=== PATIENT | female | born 1975 | race Caucasian/White ===

== ENCOUNTER 2017-10-01 17:29 | Observation (INO) | payer OTHER, BC ==
[~2017-10-01] VITALS: Ht 170.2 cm; Wt 65.5 kg
[~2017-10-01 17:29] MED LIST: PRENATAL VITAMI1 TA5 PO
[2017-10-01 23:13] VITALS: BP 111/49; PULSE 61
[2017-10-01 23:28] VITALS: BP 110/49; PULSE 61; TEMP 97.7
[2017-10-01 23:43] VITALS: BP 107/45; PULSE 60
[2017-10-01 23:58] VITALS: BP 103/45; PULSE 69
[2017-10-02] VITALS (10 sets, daily range): BP systolic 94–127; BP diastolic 44–75; PULSE 49–72; TEMP 98–99.7
[2017-10-03 00:09] VITALS: BP 105/53; PULSE 58; TEMP 98.9
[2017-10-03 03:33] VITALS: BP 108/53; PULSE 55; TEMP 98.3
[2017-10-03] MEDS ORDERED: COLACE 100100 MG/CAP PO (07:29)
[2017-10-03] MEDS ORDERED: NORCO 325 MG-7.1 TAB PO (07:29)
[2017-10-03] MEDS ORDERED: ASPI325T6 PO (07:30)
[2017-10-03 08:46] VITALS: BP 116/39; PULSE 101; TEMP 99
[2017-10-03 11:52] VITALS: BP 117/68; PULSE 72; TEMP 98.9
[2017-10-03] MEDS ORDERED: CEPHALEXIN500 M1 PO (13:21)
== END 2017-10-03 19:23 | disposition home or self-care (01) ==
LOC: COL.ER 17:29 → PEDS 18:58
DX: S82.232B Displaced oblique fracture of shaft of left tibia, initial encounter for open fracture type I or II (principal); S82.452B Displaced comminuted fracture of shaft of left fibula, initial encounter for open fracture type I or II; S62.112A Displaced fracture of triquetrum [cuneiform] bone, left wrist, initial encounter for closed fracture; Z79.82 Long term (current) use of aspirin; V19.40XA Pedal cycle driver injured in collision with unspecified motor vehicles in traffic accident, initial encounter
CPT/HCPCS: A9284; C1713; G0378; G8978-GP; G8979-GP; G8987-GO; G8988-GO; J0330; J0690; J1100; J1170; J1650; J2250; J2270; J2405; J2550; J2704; J2765; J3010; J7030; J7120; L4386

== ENCOUNTER 2018-01-17 09:45 | Outpatient (RCR) | payer OTHER, BC ==
[~2018-01-17 09:45] MED LIST changes: +ASPI325T6 PO; +CEPHALEXIN500 M1 PO; +COLACE 100100 MG/CAP PO; +NORCO 325 MG-7.1 TAB PO
== END 2018-01-20 | disposition home or self-care (01) ==
LOC: WSPT
DX: S82.202E Unspecified fracture of shaft of left tibia, subsequent encounter for open fracture type I or II with routine healing (principal); S82.402E Unspecified fracture of shaft of left fibula, subsequent encounter for open fracture type I or II with routine healing

== ENCOUNTER 2018-04-18 09:00 | Outpatient (RCR) | payer OTHER, BC | END 2018-04-21 | disposition home or self-care (01) | LOC: WSPT | DX: S82.202E Unspecified fracture of shaft of left tibia, subsequent encounter for open fracture type I or II with routine healing (principal); S62.102D Fracture of unspecified carpal bone, left wrist, subsequent encounter for fracture with routine healing; Z96.7 Presence of other bone and tendon implants ==

== ENCOUNTER 2021-12-07 06:33 | Day surgery (SDC) | payer BC ==
[~2021-12-07] VITALS: Ht 148.8 cm; Wt 67.5 kg
[2021-12-07 08:00] VITALS: BP 113/56; PULSE 62; TEMP 97.8
--- NOTE | 2021-12-07 08:00 | NUR ---
PATIENT TO ROOM 1 VIA CART. ASSIST X 2 TO CHAIR. AT BEDSIDE. PATIENT REQUESTS TOAST AND WATER. DOCTOR AT BEDSIDE WELL. VITAL SIGNS WNL. WILL CONTINUE TO MONITOR.
[2021-12-07 08:15] VITALS: BP 122/79; PULSE 64
--- NOTE | 2021-12-07 08:15 | NUR ---
PATIENT IS ALERT AND ORIENTED. VITAL SIGNS WNL. PATIENT TOLERATED TOAST AND WATER WELL. WILL CONTINUE TO MONITOR.
[2021-12-07 08:19] VITALS: BP 125/74; PULSE 68; TEMP 97.7
[2021-12-07 08:30] VITALS: BP 117/79; PULSE 62
--- NOTE | 2021-12-07 08:30 | NUR ---
LAST SET OF VITAL SIGNS WNL. DISCHARGE INSTRUCTIONS REVIEWED WITH PATIENT AND HER . IV REMOVED. WILL DISCHARGE AFTER PATIENT GETS DRESSED. DOCTOR ALREADY IN TO SPEAK WITH PATIENT.
== END 2021-12-07 08:35 | disposition home or self-care (01) ==
LOC: SDCO 06:33
DX: Z12.11 Encounter for screening for malignant neoplasm of colon (principal)
CPT/HCPCS: J2704; J7030

== ENCOUNTER → 2023-12-10 | Outpatient (CLI) | payer BC | LOC: MC.RAD 07:38 | DX: Z12.31 Encounter for screening mammogram for malignant neoplasm of breast (principal) ==